=== PATIENT | female | born 1990 | race Caucasian/White ===

== ENCOUNTER → 2017-01-06 21:09 | Observation (INO) ==
[2017-01-06 19:09] LABS: Bilirubin,Urine Negative (Negative); Blood,Urine Negative (Negative); Color,Urine Yellow (Yellow); Glucose,Urine (UA) Normal (Normal); Ketones,Urine Negative (Negative); Leukocyte Esterase,Urine Small (Negative); Nitrite,Urine Negative (Negative); PH,Urine 6.5 pH Units (5.0-8.0); Protein,Urine Negative (Neg-Trace); Specific Gravity,Urine 1.008 (1.010-1.025); Urobilinogen,Urine Normal (Normal)
[2017-01-06 19:10] LABS: Bacteria,Urine Few per hpf (None-Few); Hyaline Casts,Urine None Seen per lpf (None-Few); RBC,Urine 0-3 per hpf (0-3); Squamous Epithelial Cell,Urine Many per lpf (None-Few)
[2017-01-06 19:11] LABS: Clarity,Urine Clear (Clear)
--- NOTE | 2017-01-06 20:43 | OB/GYN Progress Note ---
Date of Encounter: 01/06/17 Time of Encounter: 20:39 - Assessment and Plan (1) Decreased movement Current Visit: Yes Status: Acute 26 y/o @ 30+3 weeks who presented to L&D for decreased movement, NST reactive, cervix FT, ok for discharge to follow up outpatient. Qualifiers: Qualified Code(s): O36.8139 - Decreased movements, third trimester, other fetus Objective - Vital Signs Vital Signs: Intake and Output 01/06/17 01/06/17 01/06/17 07:59 15:59 23:59 Other: Weight 107.5 kg Patient Weight 01/06/17 23:59 Weight 107.5 kg - Labs Labs: Abnormal lab results Ur Specific [place] 1.008 (1.010-1.025) L 01/06/17 18:59 Ur Leukocyte Esterase Small (Negative) H 01/06/17 18:59 Urine Microscopic WBC 5-15 per hpf (0-3) H 01/06/17 18:59 Ur Squamous Epith Cells Many per lpf (None-Few) H 01/06/17 18:59 Ur Culture Indicated? YES (NO) A 01/06/17 18:59
== END | disposition home or self-care (01) ==
LOC: 1NENULAB
PROVIDERS: ADMIT Student in an Organized Health Care Education/Training Program; ATTEND Student in an Organized Health Care Education/Training Program

== ENCOUNTER 2017-03-07 17:00 | Inpatient (IN) ==
[2017-03-07] MEDS ORDERED: Metoclopramide 10 MG/2 ML VIAL IVP PRN (17:55)
[2017-03-07] MEDS ORDERED: Famotidine 20 MG/2 ML VIAL IVP PRN (17:55)
[2017-03-07] MEDS ORDERED: *HR* Nalbuphine 20 MG/ML AMPUL IVP PRN (18:17)
[2017-03-07 18:31] LABS: Basophils % 0.4 %; Eosinophils # 0.1 K/mcL (0.0-0.6); Eosinophils % 0.9 %; Hematocrit 37.2 % (35.3-44.9); Immature Granulocytes % 1.2 % (0-4); Lymphocytes # 1.5 K/mcL (0.6-4.6); Lymphocytes % 17.8 %; Mean Corpuscular HGB Conc 32.3 g/dL (31.6-35.5); Mean Corpuscular Hemoglobin 27.4 pg (28.0-33.3); Mean Corpuscular Volume 84.9 fL (83.0-100.0); Monocytes # 0.6 K/mcL (0.0-1.3); Monocytes % 7.6 %; Neutrophils # 6.1 K/mcL (1.6-8.9); Platelet Count 223 K/mcL (140-400); Red Blood Count 4.38 M/mcL (3.82-4.97); Red Cell Distribution Width 14.5 % (11.5-14.5); Segmented Neutrophils % 72.1 %
[2017-03-07 18:37] LABS: Prothrombin Time 10.3 Seconds (9.4-12.1)
[2017-03-07 18:40] LABS: Activated Partial Thrombo Time 27.6 Seconds (26.0-36.0)
[2017-03-07 18:40] LABS: Amphetamine Screen,Urine Negative ng/mL (Cutoff=1000); Barbiturate Screen,Urine Negative ng/mL (Cutoff=200); Benzodiazepines Screen,Urine Negative ng/mL (Cutoff=200); Cannabinoid Screen,Urine Negative ng/mL (Cutoff = 50); Cocaine Screen,Urine Negative ng/mL (Cutoff= 300); Opiate Screen,Urine Negative ng/mL (Cutoff=300); Phencyclidine Screen,Urine Negative ng/mL (Cutoff=25)
[2017-03-07 18:46] LABS: Alanine Aminotransferase 22 Units/L (0-55); Aspartate Amino Transferase 21 Units/L (5-34); BUN/Creatinine Ratio 16 (6-26); Blood Urea Nitrogen 13 mg/dL (7-20); Lactate Dehydrogenase 211 Units/L (159-327); eGFR For African Americans > 60 (> 60); eGFR For Non-African Americans > 60 (> 60)
--- NOTE | 2017-03-07 19:04 | Anesthesia Evaluation PreOp ---
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 No family history of anesthetic problems.) : Yes Alcohol Use: none Drug use: none Medications and Allergies Multivitamin [Multivitamins] 1 each PO DAILY 03/07/17 [History] Ranitidine HCl [Zantac] 150 mg PO DAILY 03/07/17 [History] 3 Allergy/AdvReac Type Severity Reaction Status Date / Time No Known Allergies Allergy Verified 01/06/17 18:51 - Meds/Allergy Pre-op Review Medications Reviewed: Yes Allergies Reviewed: Yes Beta Blockers on Current Med List: No Anesthesia Results - Labs 03/07/17 18:21 03/07/17 18:21 Anesthesia Exam VSS and FHTs stable.
[2017-03-07] MEDS ORDERED: miSOPROStol 25 MCG TABLET PO PRN (19:50)
--- NOTE | 2017-03-07 20:06 | OB/GYN History & Physical ---
Date of Encounter: 03/07/17 Time of Encounter: 20:04 Assessment and Plan (1) 39 weeks gestation of Current visit: Yes Status: Acute (2) Gestational diabetes Current visit: Yes Status: Acute Different induction of labor with Cytotec Nubain and epidural as desired Will check PT/INR and PTT due to history of ITP Anticipate Dr. Buchanan in agreement with plan Qualifiers: Gestational diabetes mellitus control: diet-controlled Trimester: third trimester Qualified Code(s): O24.410 - Gestational diabetes mellitus in , diet controlled (3) Large for gestational age fetus Current visit: Yes Status: Acute History of Present Illness Chief complaint: Induction of labor HPI: Ms. Todd is a 27 year old female 39+0 weeks' gestation presents for induction of labor for gestational diabetes, and large for gestational last ultrasound shows 87th percentile. Patient reports good movement, denies vaginal bleeding, contractions, leaking of fluid Labs: O+, rubella and varicella immune, GBS negative, all other serologies negative Past Med Surg Social Fam HX - Past Medical History Medical history: other Psychiatric history: no psych history - Past Surgical History Surgical History: other - Social History Smoking Status: Never smoker Smokeless Tobacco Status: No Alcohol use: none Drug use: none - Family History Mother Adopted: No Living Status: Still Living Hx Family Cardiac Disorders: No Hx Family Respiratory Disorders: No Hx Family Cancer: No Hx Family GI Disorders: No Hx Family Endocrine Disorder: No Hx Family Neuromuscular Disorders: No Hx Family Neurologic Disorders: No Hx Family HEENT Disorders: No Hx Family Autoimmune Disorders: No Obstetrical History - Pregnancies : 2 Para: 0 Term: 0 : 0 Ab's: 1 Livin Medications and Allergies Multivitamin [Multivitamins] 1 each PO DAILY 03/07/17 [History] Ranitidine HCl [Zantac] 150 mg PO DAILY 03/07/17 [History] 3 Allergy/AdvReac Type Severity Reaction Status Date / Time No Known Allergies Allergy Verified 01/06/17 18:51 Exam - Constitutional Constitutional: well developed, well nourished, no acute distress, obese - Lungs Respiratory exam: CTAB - Cardiovascular Cardiovascular exam: RRR - Abdomen Abdomen: Present: bowel sounds normal, gravid, non tender - Extremities Extremities exam: normal capillary refill, normal inspection - Cervix Dilation: 1 (fingertip) - Uterus Uterus exam: Present: normal size, normal contour Results Result Diagrams: 03/07/17 18:21 03/07/17 18:21 Abnormal lab results MCH 27.4 pg (28.0-33.3) L 03/07/17 18:21 All other labs normal. - VTE Reasons for not Prescribing Prophylaxis: Treatment not Indicated - Low risk for VTE
[2017-03-07 20:24] LABS: Glucose 84 mg/dL (70-99)
[2017-03-08] MEDS ORDERED: miSOPROStol 25 MCG TABLET PO SCH
--- NOTE | 2017-03-08 00:31 | OB Labor Progress Note ---
Date of Encounter: 03/08/17 Time of Encounter: 00:28 Labor Progress Note - Subjective Subjective: Pt resting in bed and states she feels slight contractions, but they are not painful - Cervix Cervix: fingertip/50/-2 - Heart Tones Heart Tones: 125/moderate/+accels/-decels - Plan Plan: Monitor contraction pattern. If contractions decrease may give second dose of cytotec 25mcg po. Nubain and epidural as desired, Anticipate
[2017-03-08] MEDS: Ringers Solution, Lactated 1,000 ML IVC SCH ×4 (03:44→20:30)
[2017-03-08] MEDS: Acetaminophen 325 MG TABLET PO PRN (09:11)
--- NOTE | 2017-03-08 09:14 | OB Labor Progress Note ---
Date of Encounter: 03/08/17 Time of Encounter: 09:12 Labor Progress Note - Subjective Subjective: Pt resting comfortably without complaints at this time. - Cervix Cervix: 1/50/-2 - Heart Tones Heart Tones: Category I - Emerado Emerado: 2-5 minutes - Interventions Interventions: Velasquez balloon placed in cervix using sterile technique. Balloon inflated with 30ml sterile water. Pt tolerated well. - Plan Plan: Allow pt to ambulate and sit on birthing ball. Apply pressure to velasquez every hour.
[2017-03-08] MEDS: Ondansetron 4 MG/2 ML VIAL IVP PRN (09:19)
[2017-03-08] MEDS: Oxytocin 20 units/ LR 1000 mL 20 UNIT/1,000 ML BAG IVC SCH (11:54)
--- NOTE | 2017-03-08 15:03 | OB Labor Progress Note ---
Date of Encounter: 03/08/17 Time of Encounter: 15:01 Labor Progress Note - Subjective Subjective: Patient reports contractions which are getting more uncomfortable. - Cervix Cervix: 4/50/-3 vertex - Heart Tones Heart Tones: 135 with acceleration with scalp stim. Category 1 tracing. - Hatley Hatley: q 2 minutes - Interventions Interventions: AROM with clear fluid. IUPC placed without difficulty. - Plan Plan: Continue pitocin induction
[2017-03-08] MEDS ORDERED: Bupivacaine-MPF 0.25% 10 ML VIAL EP ONE (16:38)
[2017-03-08] MEDS ORDERED: *HR* FentaNYL (PF) 100 MCG/2 ML VIAL EP ONE (16:38)
[2017-03-08] MEDS ORDERED: Epidural Premix (fent/bupiv) 110 ML EP ONE (16:39)
[2017-03-08] MEDS ORDERED: Epidural Premix (fent/bupiv) 110 ML EP SCH (16:45)
--- NOTE | 2017-03-08 17:29 | Anesthesia Evaluation PreOp ---
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 Other Medical History: Denies Any Significant HX Anesthesia History: No Prior Anesthetic Complications : Yes Test: Positive Alcohol Use: none Drug use: none Medications and Allergies Multivitamin [Multivitamins] 1 each PO DAILY 03/07/17 [History] Ranitidine HCl [Zantac] 150 mg PO DAILY 03/07/17 [History] 3 Allergy/AdvReac Type Severity Reaction Status Date / Time No Known Allergies Allergy Verified 01/06/17 18:51 - Meds/Allergy Pre-op Review Medications Reviewed: Yes Allergies Reviewed: Yes Beta Blockers on Current Med List: No Anesthesia Results - Labs 03/07/17 18:21 03/07/17 18:21 Anesthesia Exam Height: 63 Weight: 109 NPO (# of Hours): MN Pain Scale: 7 - HEENT Pupil (Motor): Pupils equal Mallampati: II Teeth: Normal Oral Opening: Greater than 3 - BOOK JOGGER LOC: Oriented BOOK JOGGER Motor: Normal RUE, Normal LUE, Normal RLE, Normal LLE, Normal Face BOOK JOGGER Sensory: Normal: RUE, LUE, RLE, LLE, Face
--- NOTE | 2017-03-08 17:31 | Anesthesia Procedures ---
Date of Encounter: 03/08/17 Time of Encounter: 16:45 Procedures: Anesthesia - Epidural/Spinal Patient examined: Yes OB Eval: Gestational age: 39 OB Eval: : 2 OB Eval: Hx Para: 0 OB Eval: Contractions: Non-stressed pattern Consent Obtained: Yes Supplemental Oxygen: None/Room Air Site Prep: Aseptic Technique, Sterile prep and drape, Povidone-Iodine 1% Patient position: upright Local Anesthetic: Lidocaine 1% Amount of Local Anesthetic used: 3 Touhy Needle Gauge: 18 Touhy Needle Depth (cm): 6 Catheter Depth at Skin (cm): 10 Test Dose (1.5% Lido + Epi): Volume given (mls): 3 Test Dose Result: Negative Infusion Med: 0.125% Bupivacaine w/ 2 mcg/ml Fentanyl Infusion Rate (mls/hr): 14 Interspace Used: L4-L5 Loss of Resistance (NATALIIA): Yes Blood: No CSF: No Paresthesia: No
[2017-03-09] MEDS ORDERED: Epidural Premix (fent/bupiv) 110 ML EP ONE ×3 (00:07→15:27)
[2017-03-09] MEDS: Ondansetron 4 MG/2 ML VIAL IVP PRN (03:00)
[2017-03-09] MEDS ORDERED: *HR* FentaNYL (PF) 100 MCG/2 ML VIAL ONE (06:07)
[2017-03-09] MEDS ORDERED: Lidocaine -MPF 2% 5 ML VIAL ONE (06:08)
--- NOTE | 2017-03-09 06:17 | Anesthesia Progress Note ---
Date of Encounter: 03/09/17 Time of Encounter: 06:16 Anesthesia Note - Note Note: Called to patient bedside to evaluate breakthrough labor pain. Patient rates pain 5/10 and describes it as bilateral lower pelvic pain. 5mL of 2% lido + 100mcg fentanyl administered via epidural catheter. Patient reports decrease in pain score. VSS. 03/09/17 06:16
[2017-03-09] MEDS: Oxytocin 20 units/ LR 1000 mL 20 UNIT/1,000 ML BAG IVC SCH (08:25)
[2017-03-09] MEDS: Ringers Solution, Lactated 1,000 ML IVC SCH (08:25)
[2017-03-09] MEDS ORDERED: *HR* Ropivacaine/PF 0.2% 10 ML AMPUL ONE (10:05)
[2017-03-09] MEDS: Acetaminophen 325 MG TABLET PO PRN (17:17)
--- NOTE | 2017-03-09 17:17 | OB/GYN Procedure Note ---
Delivery - Delivery Date: 03/09/17 Provider: Liz Butcher Intrapartum events: prolonged 2nd stage>2.5hr Delivery induction: AROM, oxytocin, velasquez, misoprostol, cervidil Delivery monitor: external FHT, external uterine, internal FHT, internal uterine Anesthesia: epidural Estimated Blood Loss: 400 - Infant (s) A Infant Delivery Date: 03/09/17 Infant Delivery Time: 16:41 Presentation: vertex Position: OA Route of delivery: Gender: Male Viability: Viable Shoulder Dystocia: not encountered Specimens collected: cord blood, venous cord gases, arterial cord gases Placenta: spontaneous Cord: 3 umbilical vessels, delivered through nuchal - Repair Episiotomy: none Laceration Description: None - Complications Delivery complications: none Delivery comments: Called to room with patient complete and +2 station. Under maternal effort she delivered a viable male . Weight and Apgars are still pending at the time of dictation. Following delivery of the head the infant was bulb suctioned. Nuchal cord was noted which she delivered through. No shoulder dystocia was encountered. Following delivery the infant was placed on mom's abdomen. Cord was clamped and cut. was taken to warmer by nursing staff. A segment of cord was collected for gases. Cord blood was collected. Placenta delivered spontaneously, complete, and intact with a three-vessel cord. Superficial vaginal laceration noted that was hemostatic without repair. There were no perineal or labial lacerations on exam. was taken to nursery in stable condition. Mother is recovering in LDR in stable condition. Sponge count is correct at the end of the procedure. - Disposition Mom disposition: stable in LDR [place] disposition: stable in LDR
[2017-03-09] MEDS ORDERED: Acetaminophen 325 MG TABLET PO PRN (20:49)
[2017-03-09] MEDS ORDERED: Oxytocin 20 units/ LR 1000 mL 20 UNIT/1,000 ML BAG IVC ONE (20:49)
[2017-03-09] MEDS ORDERED: Oxytocin 20 units/ LR 1000 mL 20 UNIT/1,000 ML BAG IVC SCH (20:49)
[2017-03-10] MEDS: Ibuprofen 600 MG TABLET PO PRN ×3 (01:10→17:17)
[2017-03-10] MEDS: Prenatal Vit/FA 1 EACH TABLET PO SCH (08:16)
--- NOTE | 2017-03-10 08:27 | OB/GYN Progress Note ---
Date of Encounter: 03/10/17 Time of Encounter: 08:15 - Assessment and Plan (1) Status post normal vaginal delivery Current Visit: Yes Status: Acute Discharged home in a.m. if stable and afebrile Subjective - Subjective Interval history: Patient is doing well at this time baby is still in the nursery possible discharge home tomorrow night. States bleeding is slowing down still but heavy minimal cramping. Overall she is doing well is pumping and trying to breast- feed. Patient reports: appetite normal, voiding normally, pain well controlled, ambulating normally : in NICU Objective - Latest Vital Signs Latest vital signs: Vital Signs Temp Pulse Resp BP Pulse Ox 03/10/17 06:00 97.2 F L 98 18 111/72 98 03/10/17 04:01 98.6 F 98 16 108/71 95 03/10/17 01:34 98.5 F 120 16 105/68 97 03/09/17 23:44 99.1 F 107 16 102/56 99 03/09/17 21:30 99.1 F 126 16 119/74 98 03/09/17 20:40 98.5 F 112 14 133/82 99 03/09/17 19:35 99.1 F 110 16 116/75 97 Intake and Output 03/09/17 03/10/17 03/10/17 23:59 07:59 15:59 Intake Total 120 / 120 Output Total 700 / 700 200 / 200 Balance -580 / -580 -200 / -200 Intake: Oral 120 / 120 Output: Urine 700 / 700 200 / 200 Other: Weight 110.9 kg - Exam Lungs: bilateral: normal Chest: Normal S1, Normal S2 Extremities: Present: normal Abdomen: Present: soft Uterus: Present: normal, firm Uterus Position: At Umbilicus
[2017-03-10] MEDS ORDERED: Neosporin OINT 15 GM TUBE TP SCH (21:00)
[2017-03-11] MEDS: Ibuprofen 600 MG TABLET PO PRN ×2 (02:41→08:05)
[2017-03-11] MEDS: Prenatal Vit/FA 1 EACH TABLET PO SCH (08:05)
[2017-03-11 08:23] VITALS: BP 130/81
--- NOTE | 2017-03-11 10:46 | Discharge Summary ---
Date of Encounter: 03/11/17 Time of Encounter: 10:46 - Discharge Diagnosis (1) Status post normal vaginal delivery Priority: Primary Status: Acute Comments: Doing well, will D/c home. - Discharge Medications Prescriptions: Ibuprofen [Motrin] 600 mg PO Q6HR PRN #40 tab PRN Reason: Cramping Home Medications: Multivitamin [Multivitamins] 1 each PO DAILY 03/07/17 [History] Ranitidine HCl [Zantac] 150 mg PO DAILY 03/07/17 [History] Ibuprofen [Motrin] 600 mg PO Q6HR PRN #40 tab 03/11/17 [Rx] Allergies/Adverse Reactions: 3 Allergy/AdvReac Type Severity Reaction Status Date / Time No Known Allergies Allergy Verified 01/06/17 18:51 Data Procedures and tests throughout hospitalization: Laboratory Tests 03/07/17 03/07/17 03/07/17 17:30 18:21 18:21 WBC 8.5 RBC 4.38 Hgb 12.0 Hct 37.2 MCV 84.9 MCH 27.4 L MCHC 32.3 RDW 14.5 Plt Count 223 MPV 12.0 Immature Gran % 1.2 Seg Neutrophils % 72.1 Lymphocytes % 17.8 Monocytes % 7.6 Eosinophils % 0.9 Basophils % 0.4 Neutrophils # 6.1 Lymphocytes # 1.5 Monocytes # 0.6 Eosinophils # 0.1 Basophils # 0.0 PT 10.3 INR 1.0 APTT 27.6 BUN Creatinine Est GFR ( Amer) Est GFR (Non-Af Amer) BUN/Creatinine Ratio Glucose Uric Acid AST ALT Lactate Dehydrogenase Urine Opiates Screen Negative Ur Barbiturates Screen Negative Ur Phencyclidine Scrn Negative Ur Amphetamines Screen Negative U Benzodiazepines Scrn Negative Urine Cocaine Screen Negative U Marijuana (THC) Screen Negative 03/07/17 18:21 WBC RBC Hgb Hct MCV MCH MCHC RDW Plt Count MPV Immature Gran % Seg Neutrophils % Lymphocytes % Monocytes % Eosinophils % Basophils % Neutrophils # Lymphocytes # Monocytes # Eosinophils # Basophils # PT INR APTT BUN 13 Creatinine 0.79 Est GFR ( Amer) > 60 Est GFR (Non-Af Amer) > 60 BUN/Creatinine Ratio 16 Glucose 84 Uric Acid 6.0 AST 21 ALT 22 Lactate Dehydrogenase 211 Urine Opiates Screen Ur Barbiturates Screen Ur Phencyclidine Scrn Ur Amphetamines Screen U Benzodiazepines Scrn Urine Cocaine Screen U Marijuana (THC) Screen - Impressions Doing well s/p . Cont. PP care. 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 Time Attestation: Total time spent providing and/or coordinating discharge services: Exam - Constitutional Vitals: Temp Pulse Resp BP Pulse Ox 98.0 F 96 16 130/81 98 03/11/17 07:30 03/11/17 07:30 03/11/17 07:30 03/11/17 07:30 03/10/17 20:01 General appearance IM: A&O X 3 - Respiratory Respiratory exam: Present: CTAB - Cardiovascular Cardiovascular exam IM: Present: RRR - GI/Abdominal GI/Abdominal exam IM: normal bowel sounds - Uterus Position: 2 Fingers Below Umbilicus - Extremities Exam Extremities exam IM: Present: full ROM - Neurological Exam Neurological exam: oriented X3 - VTE Reasons for not Prescribing Prophylaxis: Treatment not Indicated - Low risk for VTE
--- NOTE | 2017-03-11 15:58 | Discharge Summary ---
Outpatient Proc Discharge Plan - Plan Prescriptions: Ibuprofen [Motrin] 600 mg PO Q6HR PRN #40 tab PRN Reason: Cramping Breast Pump [BREAST PUMP] 1 each .ROUTE AD #1 each Home Medications: Multivitamin [Multivitamins] 1 each PO DAILY 03/07/17 [History] Ranitidine HCl [Zantac] 150 mg PO DAILY 03/07/17 [History] Breast Pump [BREAST PUMP] 1 each .ROUTE AD #1 each 03/11/17 [Rx] Ibuprofen [Motrin] 600 mg PO Q6HR PRN #40 tab 03/11/17 [Rx] Follow up with: Liz Butcher DO [Partnered Physician] -
[2017-03-11] MEDS ORDERED: Methylergonovine 0.2 MG/ML AMPUL IM ONE (15:59)
== END 2017-03-11 16:00 | disposition home or self-care (01) | DRG 775 ==
LOC: 1NENULAB 17:06 → 1NENUOBS 03-09 21:06
PROVIDERS: ADMIT Obstetrics & Gynecology; ATTEND Obstetrics & Gynecology

== ENCOUNTER → 2018-09-24 17:00 | Observation (INO) ==
[2018-09-24 15:10] LABS: Bilirubin,Urine Negative (Negative); Blood,Urine Negative (Negative); Clarity,Urine Clear (Clear); Color,Urine Yellow (Yellow); Glucose,Urine (UA) Normal (Normal); Ketones,Urine Negative (Negative); Leukocyte Esterase,Urine Trace (Negative); Nitrite,Urine Negative (Negative); PH,Urine 6.5 pH Units (5.0-8.0); Protein,Urine Trace mg/dL (Neg-Trace); Urobilinogen,Urine Normal (Normal)
[2018-09-24 15:11] LABS: Bacteria,Urine None Seen per hpf (None-Few); Hyaline Casts,Urine None Seen per lpf (None-Few); RBC,Urine 0-3 per hpf (0-3); Squamous Epithelial Cell,Urine Many per lpf (None-Few)
[2018-09-24 15:58] LABS: Amphetamine Screen,Urine Negative ng/mL (Cutoff=1000); Barbiturate Screen,Urine Positive ng/mL (Cutoff=200); Benzodiazepines Screen,Urine Negative ng/mL (Cutoff=200); Cannabinoid Screen,Urine Negative ng/mL (Cutoff = 50); Cocaine Screen,Urine Negative ng/mL (Cutoff= 300); Opiate Screen,Urine Negative ng/mL (Cutoff=300); Phencyclidine Screen,Urine Negative ng/mL (Cutoff=25)
[2018-09-24 16:37] LABS: Candida DNA Not Detected (Not Detect); Gardnerella DNA Not Detected (Not Detect); Trichomonas DNA Not Detected (Not Detect)
--- NOTE | 2018-09-24 16:56 | Discharge Summary ---
Date of Encounter: 09/24/18 Time of Encounter: 16:56 - Discharge Diagnosis (1) 32 weeks gestation of Priority: Primary Status: Acute Comments: Follow-up with Dr. Butcher as scheduled labor precautions discussed Discharge home (2) Vaginal bleeding Priority: Secondary Status: Acute Comments: Vaginosis panel negative UA negative No blood seen on speculum exam - Discharge Medications Allergies/Adverse Reactions: Allergy/AdvReac Type Severity Reaction Status Date / Time No Known Allergies Allergy Verified 01/06/17 18:51 Data Procedures and tests throughout hospitalization: Laboratory Tests 09/24/18 09/24/18 09/24/18 14:50 14:50 Unknown Urine Color Yellow Urine Clarity Clear Urine pH 6.5 Ur Specific [place] 1.020 Urine Protein Trace Urine Glucose (UA) Normal Urine Ketones Negative Urine Blood Negative Urine Nitrite Negative Urine Bilirubin Negative Urine Urobilinogen Normal Ur Leukocyte Esterase Trace H Urine Microscopic RBC 0-3 Urine Microscopic WBC 3-5 H Ur Squamous Epith Cells Many H Urine Bacteria None Seen Hyaline Casts None Seen Ur Culture Indicated? NO. A Urine Opiates Screen Negative Ur Barbiturates Screen Positive H Ur Phencyclidine Scrn Negative Ur Amphetamines Screen Negative U Benzodiazepines Scrn Negative Urine Cocaine Screen Negative U Marijuana (THC) Screen Negative Ur Drug Screen Interp See Below Richa species DNA Not Detected Gardnerella DNA Probe Not Detected Trichomonas DNA Probe Not Detected Labs on day of discharge: Labs from last 24 hours 09/24/18 09/24/18 09/24/18 Unknown 14:50 14:50 Urine Color Yellow Urine Clarity Clear Urine pH 6.5 Ur Specific [place] 1.020 Urine Protein Trace Urine Glucose (UA) Normal Urine Ketones Negative Urine Blood Negative Urine Nitrite Negative Urine Bilirubin Negative Urine Urobilinogen Normal Ur Leukocyte Esterase Trace H Urine Microscopic RBC 0-3 Urine Microscopic WBC 3-5 H Ur Squamous Epith Cells Many H Urine Bacteria None Seen Hyaline Casts None Seen Ur Culture Indicated? NO. A Urine Opiates Screen Negative Ur Barbiturates Screen Positive H Ur Phencyclidine Scrn Negative Ur Amphetamines Screen Negative U Benzodiazepines Scrn Negative Urine Cocaine Screen Negative U Marijuana (THC) Screen Negative Ur Drug Screen Interp See Below Richa species DNA Not Detected Gardnerella DNA Probe Not Detected Trichomonas DNA Probe Not Detected Date of admission: 09/24/18 14:23 Primary care physician: Jonn Rodríguez DO Discharging clinician: Charu Gaytan Anticipated date of discharge: 09/24/18 - Patient Status Disposition: Home, Self-Care Condition: Good Functional capacity at discharge: independent ambulation Overall status at discharge: patient is back to baseline - Discharge Instructions Follow Up With: Jon Rodríguez DO [Primary Care Provider] - Liz Butcher DO [Partnered Physician] - Additional Instructions: LABOR AND DELIVERY DISCHARGE INSTRUCTIONS Signs and Symptoms to be Reported to your Doctor Immediately: * Sudden gush, continuous or intermittent lead of fluid from vagina (note the time of gush and color of fluid) * Onset of bright red vaginal bleeding with or without pain (if you had a vaginal exam during this visit you may notice some dark red spotting. This is normal.) * Lower abdominal cramping or backache that is premenstrual-like feeling. * More than 6 contractions in one hour. * Burning during urination, having to urinate more frequently or pain in your mid-back. * A change in the baby's activity. This could be an increase or decrease in activity. * Severe headache which does not go away with tylenol. * Sudden swelling in the face, hands, arms and/or legs. * Upper abdominal pain - sometimes associated with heartburn or nausea and is not relieved by Maalox, Mylanta or Tums. * Dizziness or blurred vision or visual disturbances (seeing stars/lights). * Kick Counts One hour after a meal, lay down on one side in a quiet place. Count the number of times the baby moves during an hour. If less than 6 movements, notify your physician. Diet: *Force fluids - 8-10 tall glasses of fluid per day. May include popsicles and jello. 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 She endorses good fm and denies lof and ctx. She had a small amount of bright red bleeding when she went to the bathroom this morning. No other symptoms. Vaginosis panel and UA both negative. No blood seen on speculum exam. Patient discharged home with appropriate follow up. Time Attestation: Total time spent providing and/or coordinating discharge services: Time Spent: Less than 30 minutes Exam - Constitutional General appearance IM: A&O X 3 - Respiratory Respiratory exam: Present: CTAB - Cardiovascular Cardiovascular exam IM: Present: RRR, +S1, +S2 - GI/Abdominal GI/Abdominal exam IM: normal bowel sounds, no peritoneal signs - Rectal Rectal exam: deferred - Uterine Tone: Firm Uterus Position: At Umbilicus, Midline - Neurological Exam Neurological exam: alert, CN II-XII intact, normal gait, oriented X3, reflexes normal, no focal deficits, strengths equal and symetr throughout - VTE Reasons for not Prescribing Prophylaxis: Treatment not Indicated - Low risk for VTE
== END | disposition home or self-care (01) ==
LOC: 1NENULAB
PROVIDERS: ADMIT Advanced Practice Midwife; ATTEND Advanced Practice Midwife

== ENCOUNTER 2018-10-01 17:23 | Observation (INO) ==
[2018-10-01 18:40] LABS: Bilirubin,Urine Negative (Negative); Blood,Urine Negative (Negative); Clarity,Urine Cloudy (Clear); Color,Urine Yellow (Yellow); Glucose,Urine (UA) Normal (Normal); Ketones,Urine Negative (Negative); Leukocyte Esterase,Urine Small (Negative); Nitrite,Urine Negative (Negative); PH,Urine 6.5 pH Units (5.0-8.0); Protein,Urine Negative (Neg-Trace); Specific Gravity,Urine 1.012 (1.010-1.025); Urobilinogen,Urine Normal (Normal)
[2018-10-01 18:43] LABS: Bacteria,Urine Moderate per hpf (None-Few); Hyaline Casts,Urine None Seen per lpf (None-Few); RBC,Urine 0-3 per hpf (0-3); Squamous Epithelial Cell,Urine Many per lpf (None-Few)
[2018-10-01 19:05] LABS: Amphetamine Screen,Urine Negative ng/mL (Cutoff=1000); Barbiturate Screen,Urine Negative ng/mL (Cutoff=200); Benzodiazepines Screen,Urine Negative ng/mL (Cutoff=200); Cannabinoid Screen,Urine Negative ng/mL (Cutoff = 50); Cocaine Screen,Urine Negative ng/mL (Cutoff= 300); Opiate Screen,Urine Negative ng/mL (Cutoff=300); Phencyclidine Screen,Urine Negative ng/mL (Cutoff=25)
--- NOTE | 2018-10-01 19:09 | Discharge Summary ---
Date of Encounter: 10/01/18 Time of Encounter: 19:08 - Discharge Diagnosis (1) 31 weeks gestation of Priority: Primary Status: Acute Comments: Follow up with Dr. Butcher as scheduled PTL precautions discussed Discharge home (2) Vaginal bleeding Priority: Secondary Status: Acute Comments: Patient and does not have any vaginal bleeding throughout the hours she has been here. Vaginal exam fingertip/thick/high - Discharge Medications Prescriptions: No Action Natachew Tablet 1 tab PO DAILY Home Medications: Natachew Tablet 1 tab PO DAILY 10/01/18 [History] Allergies/Adverse Reactions: Allergy/AdvReac Type Severity Reaction Status Date / Time No Known Allergies Allergy Verified 01/06/17 18:51 Data Procedures and tests throughout hospitalization: Laboratory Tests 10/01/18 10/01/18 17:45 17:45 Urine Color Yellow Urine Clarity Cloudy A Urine pH 6.5 Ur Specific Ideal 1.012 Urine Protein Negative Urine Glucose (UA) Normal Urine Ketones Negative Urine Blood Negative Urine Nitrite Negative Urine Bilirubin Negative Urine Urobilinogen Normal Ur Leukocyte Esterase Small H Urine Microscopic RBC 0-3 Urine Microscopic WBC 5-15 H Ur Squamous Epith Cells Many H Urine Bacteria Moderate H Hyaline Casts None Seen Ur Culture Indicated? NO. A Urine Opiates Screen Negative Ur Barbiturates Screen Negative Ur Phencyclidine Scrn Negative Ur Amphetamines Screen Negative U Benzodiazepines Scrn Negative Urine Cocaine Screen Negative U Marijuana (THC) Screen Negative Ur Drug Screen Interp See Below Labs on day of discharge: Labs from last 24 hours 10/01/18 10/01/18 17:45 17:45 Urine Color Yellow Urine Clarity Cloudy A Urine pH 6.5 Ur Specific Ideal 1.012 Urine Protein Negative Urine Glucose (UA) Normal Urine Ketones Negative Urine Blood Negative Urine Nitrite Negative Urine Bilirubin Negative Urine Urobilinogen Normal Ur Leukocyte Esterase Small H Urine Microscopic RBC 0-3 Urine Microscopic WBC 5-15 H Ur Squamous Epith Cells Many H Urine Bacteria Moderate H Hyaline Casts None Seen Ur Culture Indicated? NO. A Urine Opiates Screen Negative Ur Barbiturates Screen Negative Ur Phencyclidine Scrn Negative Ur Amphetamines Screen Negative U Benzodiazepines Scrn Negative Urine Cocaine Screen Negative U Marijuana (THC) Screen Negative Ur Drug Screen Interp See Below Date of admission: 10/01/18 17:23 Discharging clinician: Charu Gaytan Anticipated date of discharge: 10/01/18 - Patient Status Disposition: Home, Self-Care Condition: Good Functional capacity at discharge: independent ambulation Overall status at discharge: patient is progressing back to baseline - Discharge Instructions Follow Up With: Liz Butcher DO [Partnered Physician] - - Diet and Activity Activity: increase activity as tolerated Diet: regular diet 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 She endorses good movement and denies leakage of fluid and contractions. She was monitored for a couple of hours and was found to have a few contractions and no vaginal bleeding. Speculum exam revealed no blood in the vault. fingertip/thick/high Time Attestation: Total time spent providing and/or coordinating discharge services: Time Spent: Less than 30 minutes Exam - Constitutional General appearance IM: A&O X 3 - Respiratory Respiratory exam: Present: CTAB - Cardiovascular Cardiovascular exam IM: Present: RRR, +S1, +S2 - GI/Abdominal GI/Abdominal exam IM: normal bowel sounds, no peritoneal signs - Rectal Rectal exam: deferred - Uterine Tone: Firm - Extremities Exam Extremities exam IM: Present: normal capillary refill, normal inspection, radial pulses palpable and symmetrical - Neurological Exam Neurological exam: alert, CN II-XII intact, normal gait, oriented X3, reflexes normal, no focal deficits, strengths equal and symetr throughout - VTE Reasons for not Prescribing Prophylaxis: Treatment not Indicated - Low risk for VTE
== END 2018-10-01 19:18 | disposition home or self-care (01) ==
LOC: 1NENULAB
PROVIDERS: ADMIT Advanced Practice Midwife; ATTEND Advanced Practice Midwife

== ENCOUNTER 2018-11-27 07:22 | Inpatient (IN) ==
[2018-11-27] MEDS ORDERED: *HR* Nalbuphine 10 MG/ML AMPUL IVP PRN (07:40)
[2018-11-27] MEDS ORDERED: Ondansetron 4 MG/2 ML VIAL IVP PRN (07:40)
[2018-11-27] MEDS ORDERED: Naloxone 0.4 MG/ML INJ IVP PRN (07:40)
[2018-11-27] MEDS ORDERED: Metoclopramide 10 MG/2 ML VIAL IVP PRN (07:40)
[2018-11-27] MEDS ORDERED: Famotidine 20 MG/2 ML VIAL IVP PRN (07:40)
[2018-11-27] MEDS ORDERED: miSOPROStol 25 MCG TABLET PO PRN (07:40)
[2018-11-27] MEDS ORDERED: Oxytocin 20 units/ LR 1000 mL 20 UNIT/1,000 ML BAG IVC SCH (07:45)
[2018-11-27] MEDS ORDERED: Ringers Solution, Lactated 1,000 ML IVC SCH (07:45)
[2018-11-27 08:53] LABS: Basophils % 0.4 %; Eosinophils # 0.1 K/mcL (0.0-0.6); Hematocrit 35.4 % (35.3-44.9); Hemoglobin 11.5 g/dL (11.5-15.4); Lymphocytes # 1.9 K/mcL (0.6-4.6); Lymphocytes % 21.7 %; Mean Corpuscular HGB Conc 32.5 g/dL (31.6-35.5); Mean Corpuscular Volume 83.1 fL (83.0-100.0); Mean Platelet Volume 11.6 fL (9.4-12.4); Monocytes # 0.7 K/mcL (0.0-1.3); Monocytes % 8.1 %; Neutrophils # 6.1 K/mcL (1.6-8.9); Platelet Count 238 K/mcL (140-400); Red Blood Count 4.26 M/mcL (3.82-4.97); Red Cell Distribution Width 13.6 % (11.5-14.5); Segmented Neutrophils % 67.8 %
[2018-11-27 09:00] LABS: Amphetamine Screen,Urine Negative ng/mL (Cutoff=1000); Barbiturate Screen,Urine Negative ng/mL (Cutoff=200); Benzodiazepines Screen,Urine Negative ng/mL (Cutoff=200); Cannabinoid Screen,Urine Negative ng/mL (Cutoff = 50); Cocaine Screen,Urine Negative ng/mL (Cutoff= 300); Opiate Screen,Urine Negative ng/mL (Cutoff=300); Phencyclidine Screen,Urine Negative ng/mL (Cutoff=25)
--- NOTE | 2018-11-27 09:51 | Anesthesia Evaluation PreOp ---
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 History of scoliosis, no surgical intervention, no problems with previous epidural.), Other (Obesity, BMI 43.5.) Anesthesia History: No Prior Anesthetic Complications, Past Anesthesia (T&A at age 6 yrs., wisdom teeth extracted. No problems with GA, no FHAP. Previous epidural 20 mos. ago with no issues.) Alcohol Use: none Drug use: none Medications and Allergies Natachew Tablet 1 tab PO DAILY 10/01/18 [History] Famotidine [Pepcid] 40 mg PO DAILY 11/27/18 [History] Allergy/AdvReac Type Severity Reaction Status Date / Time No Known Allergies Allergy Verified 10/11/18 19:35 - Meds/Allergy Pre-op Review Medications Reviewed: No Allergies Reviewed: No Beta Blockers on Current Med List: No Anesthesia Results - Labs 11/27/18 08:32 Anesthesia Exam 134/83, 117, 16. FHTs 130s. Height: 5'3" Weight: 111 kg BMI 43.5 NPO (# of Hours): 2 Pain Scale: 0 - HEENT Pupil (Motor): Pupils equal, EOMI Mallampati: III Teeth: Normal Oral Opening: Greater than 3 - INTERNET SALES REPRESENTATIVE LOC: Oriented INTERNET SALES REPRESENTATIVE Motor: Normal RUE, Normal LUE, Normal RLE, Normal LLE, Normal Face INTERNET SALES REPRESENTATIVE Sensory: Normal: RUE, LUE, RLE, LLE, Face - Cardiac Rhythm: Regular - Pulmonary Breath Sounds: bilateral Clear Respiratory Effort: Symmetrical Anesthesia Assess/Plan ASA Score: 3 (BMI 43.5) Level of consciousness: Cooperative, Oriented, Tranquil Anesthetic Plan: Epidural Monitoring Plan: Standard Monitors
[2018-11-27] MEDS ORDERED: Famotidine 20 MG/2 ML VIAL IVP ONE (11:23)
--- NOTE | 2018-11-27 12:35 | OB/GYN History & Physical ---
Date of Encounter: 11/27/18 Time of Encounter: 12:26 Assessment and Plan (1) Elective induction of labor planned Current visit: Yes Status: Acute Pitocin induction already underway. Continue to increase until adequate labor acheived. EFM in anticipation of vaginal delivery. (2) 39 weeks gestation of Current visit: Yes Status: Acute (3) Large for gestational age fetus Current visit: Yes Status: Acute (4) Gestational diabetes Current visit: Yes Status: Acute Qualifiers: Gestational diabetes mellitus control: diet-controlled Trimester: third trimester Qualified Code(s): O24.410 - Gestational diabetes mellitus in , diet controlled History of Present Illness Chief complaint: Patient here for induction of labor at 39 weeks. HPI: Ms. Todd is a 28 year old female G 3 P 1-0-1-1 at 39 0/7 weeks presents for induction of labor at term. Her has been complicated by GDMA1 (diagnosed by accuchecks only because she cannot tolerate a glucola), obesity, and LGA. She denies any contractions, vaginal bleeding, or leaking fluid. She reports good movement. Past Med Surg Social Fam HX - Past Medical History Source: patient Medical history: migraine, other Additional medical history: ITP at 1 years old, since resolved, irritable bowel syndrome. seasonal allergies Psychiatric history: no psych history - Past Surgical History Surgical History: other Additional surgical history: tonsils, wisdom teeth - Social History Smoking Status: Never smoker Smokeless Tobacco Status: No Alcohol use: none Drug use: none - Family History Mother Adopted: No Family Member Ethnicity: Non- Living Status: Still Living Hx Family Cardiac Disorders: No Hx Family Respiratory Disorders: No Hx Family Cancer: No Hx Family GI Disorders: No Hx Family Genitourinary Disorders: No Hx Family Endocrine Disorder: No Hx Family Musculoskeletal Disorders: No Hx Family Neuromuscular Disorders: No Hx Family Neurologic Disorders: No Hx Family HEENT Disorders: No Hx Family Autoimmune Disorders: No Hx Family Reproductive Disorders: No Hx Family Psychosocial Disorders: No Hx Family Medical Disorders: No Obstetrical History - Pregnancies : 3 Para: 1 Term: 1 : 0 Ab's: 1 Livin Medications and Allergies Natachew Tablet 1 tab PO DAILY 10/01/18 [History] Famotidine [Pepcid] 40 mg PO DAILY 11/27/18 [History] Allergy/AdvReac Type Severity Reaction Status Date / Time No Known Allergies Allergy Verified 10/11/18 19:35 Review of System OB All systems PM: reviewed and no additional remarkable complaints except as stated - Constitutional Constitutional ROS IM: no chills, no fatigue, no fever(s) - Cardiovascular Cardiovascular: no chest pain, no chest pain at rest, no dyspnea - Respiratory Respiratory: no dyspnea - Gastrointestinal Gastrointestinal: no heartburn, no nausea, no vomiting - Menstruation Menstruation: amenorrhea Exam - Constitutional Constitutional: well developed, well nourished, no acute distress, obese - HEENT HEENT: EOMI - Lungs Respiratory exam: CTAB - Cardiovascular Cardiovascular exam: RRR - Abdomen Abdomen: Present: bowel sounds normal, gravid, non tender - Vulva Vulva: bilateral: normal - Cervix Dilation: 4 Effacement: 50 Station: -3 - Comments Comments: AROM with moderate amount of clear fluid noted FHTs category 1 with baseline 140's, toco q 2-4 minutes Results Result Diagrams: 11/27/18 08:32 Abnormal lab results MCH 27.0 pg (28.0-33.3) L 11/27/18 08:32 All other labs normal. US - abdomen: report reviewed (EFW 7 lb 5 oz on 11/04/2018 with MARICARMEN 16.3 cm) - VTE Reasons for not Prescribing Prophylaxis: Treatment not Indicated - Low risk for VTE
[2018-11-27] MEDS ORDERED: Epidural Premix (fent/bupiv) 110 ML EP ONE (14:49)
[2018-11-27] MEDS ORDERED: *HR* Ropivacaine/PF 0.2% 20 ML VIAL ONE (14:49)
[2018-11-27] MEDS ORDERED: *HR* FentaNYL (PF) 100 MCG/2 ML VIAL ONE (14:49)
--- NOTE | 2018-11-27 15:22 | Anesthesia Procedures ---
Date of Encounter: 11/27/18 Time of Encounter: 14:40 Procedures: Anesthesia - Epidural/Spinal Patient ID/Chart reviewed: Yes Patient examined: Yes OB Eval: Contractions: Non-stressed pattern Consent Obtained: Yes Supplemental Oxygen: None/Room Air Site Prep: Aseptic Technique Patient position: upright Local Anesthetic: Lidocaine 1% Amount of Local Anesthetic used: 3 Touhy Needle Gauge: 18 Touhy Needle Depth (cm): 5 Catheter Depth at Skin (cm): 12 Test Dose (1.5% Lido + Epi): Volume given (mls): 3 Test Dose Result: Negative Loading Dose: Fentanyl (mcg): 100 Loading Dose: Other: ropivicaine 7ml 0.2% Loading Dose Administered: Thru Touhy Needle Infusion Rate (mls/hr): [address]: Tegaderm Interspace Used: L3-L4 Loss of Resistance (NATALIIA): Yes Blood: No CSF: No Paresthesia: No Procedure: One attempt aseptically L3-4, good NATALIIA, VS per RN
--- NOTE | 2018-11-27 15:27 | OB Labor Progress Note ---
Date of Encounter: 11/27/18 Time of Encounter: 15:24 Labor Progress Note - Subjective Subjective: Patient is without complaints. She is s/p epirdural - Cervix Cervix: 6/50/-3 cephalic - Heart Tones Heart Tones: category 1 with baseline 140 - [place]: q2-4 minutes - Interventions Interventions: IUPC placed without difficulty
[2018-11-27] MEDS ORDERED: Epidural Premix (fent/bupiv) 110 ML EP SCH (15:30)
--- NOTE | 2018-11-28 00:24 | OB/GYN Procedure Note ---
Delivery - Delivery Date: 11/28/18 Provider: Liz Butcher Delivery induction: AROM, oxytocin Delivery monitor: external FHT, external uterine, internal uterine Anesthesia: epidural Quantitated Blood Loss: 100 - (s) Infant A Delivery Date: 11/28/18 Infant Delivery Time: 00:09 Presentation: vertex Position: KEY Route of delivery: Gender: Female Viability: Viable Pounds: 8 Ounces: 5 Weight Gram: 3.765 kg at 1 minute: 9 at 5 mins: 10 Shoulder Dystocia: not encountered Specimens collected: cord blood Placenta: spontaneous Cord: 3 umbilical vessels - Repair Episiotomy: none Laceration Description: Vaginal (superficial, hemostatic without repair) - Complications Delivery complications: none Delivery comments: Called to room with patient complete and +2 station. Under maternal effort she delivered a viable female weighing 8 lbs. 5 oz. and Apgars 9 and 10 at 1 and 5 minutes respectively delivered over an intact perineum. Following delivery of the head there was no nuchal cord or shoulder dystocia encountered. Infant was placed on mom's abdomen. Cord was allowed to cease pulsations and then was double clamped and cut with assistance from the father. There is a superficial vaginal laceration that was hemostatic without repair. There were no labial, vaginal, or cervical lacerations on exam. Placenta delivered spontaneously, complete, and intact with a three-vessel cord. Mother and infant are recovering in the LDR in stable condition. - Disposition Mom disposition: stable in LDR [place] disposition: stable in LDR
[2018-11-28] MEDS ORDERED: Lanolin 7 G OINT...G. TP PRN (02:27)
[2018-11-28] MEDS ORDERED: Acetaminophen 325 MG TABLET PO PRN (02:27)
[2018-11-28] MEDS ORDERED: Benzocaine/Menthol 56 GM AEROSOL SPRAY TP PRN (02:27)
[2018-11-28] MEDS ORDERED: Oxytocin 20 units/ LR 1000 mL 20 UNIT/1,000 ML BAG IVC SCH (02:27)
[2018-11-28] MEDS: Ibuprofen 600 MG TABLET PO PRN ×2 (09:14→19:58)
[2018-11-28] MEDS: Prenatal Vit/FA 1 EACH TABLET PO SCH (09:15)
[2018-11-29 08:05] VITALS: BP 133/70
[2018-11-29] MEDS: Prenatal Vit/FA 1 EACH TABLET PO SCH (09:15)
--- NOTE | 2018-11-29 11:19 | Discharge Summary ---
Date of Encounter: 11/29/18 Time of Encounter: 11:16 - Discharge Diagnosis (1) Vaginal delivery Priority: Primary Status: Acute Comments: Feeling well Tolerating regular diet Pain well-controlled with by mouth pain meds Ambulating independently Voiding independently Lochia light Passing flatus, no BM yet Vital signs stable Discharge home today (2) Breast feeding status of mother Priority: Secondary Status: Acute Comments: Community resources provided - Discharge Medications Prescriptions: New Breast Pump [BREAST PUMP] 1 each .ROUTE AD #1 each Docusate [Colace] 100 mg PO BID #30 capsule Benzocaine/Menthol Milo [Dermoplast Milo] 1 appl TP QID PRN aerosol PRN Reason: See Comments Lanolin [Lansinoh] 1 appl TP QID PRN oint...g. PRN Reason: Ibuprofen [Motrin] 600 mg PO Q6HR PRN #30 tablet PRN Reason: Cramping Acetaminophen [Tylenol] 650 mg PO Q6HR PRN tablet PRN Reason: Mild Pain Continued Natachew Tablet 1 tab PO DAILY Famotidine [Pepcid] 40 mg PO DAILY Home Medications: Natachew Tablet 1 tab PO DAILY 10/01/18 [History] Famotidine [Pepcid] 40 mg PO DAILY 11/27/18 [History] Acetaminophen [Tylenol] 650 mg PO Q6HR PRN tablet 11/29/18 [Rx] Benzocaine/Menthol Milo [Dermoplast Milo] 1 appl TP QID PRN aerosol 11/29/18 [Rx] Breast Pump [BREAST PUMP] 1 each .ROUTE AD #1 each 11/29/18 [Rx] Docusate [Colace] 100 mg PO BID #30 capsule 11/29/18 [Rx] Ibuprofen [Motrin] 600 mg PO Q6HR PRN #30 tablet 11/29/18 [Rx] Lanolin [Lansinoh] 1 appl TP QID PRN oint...g. 11/29/18 [Rx] Allergies/Adverse Reactions: Allergy/AdvReac Type Severity Reaction Status Date / Time No Known Allergies Allergy Verified 10/11/18 19:35 Data Procedures and tests throughout hospitalization: Laboratory Tests 11/27/18 11/27/18 08:32 08:32 WBC 8.9 RBC 4.26 Hgb 11.5 Hct 35.4 MCV 83.1 MCH 27.0 L MCHC 32.5 RDW 13.6 Plt Count 238 MPV 11.6 Immature Gran % 1.0 Seg Neutrophils % 67.8 Lymphocytes % 21.7 Monocytes % 8.1 Eosinophils % 1.0 Basophils % 0.4 Neutrophils # 6.1 Lymphocytes # 1.9 Monocytes # 0.7 Eosinophils # 0.1 Basophils # 0.0 Urine Opiates Screen Negative Ur Barbiturates Screen Negative Ur Phencyclidine Scrn Negative Ur Amphetamines Screen Negative U Benzodiazepines Scrn Negative Urine Cocaine Screen Negative U Marijuana (THC) Screen Negative Ur Drug Screen Interp See Below Date of admission: 11/27/18 07:22 Primary care physician: Jonn Rodríguez DO Consults: 11/28/18 02:27 Consult to Forensic Chemist [CONS] Routine Comment: Vaginal delivery, consult needed Discharging clinician: Charu Gaytan Anticipated date of discharge: 11/29/18 - Patient Status Disposition: Home, Self-Care Condition: Good Functional capacity at discharge: independent ambulation Overall status at discharge: patient is progressing back to baseline (6) - Discharge Instructions Follow Up With: Jon Rodríguez DO [Primary Care Provider] - Liz Butcher DO [Partnered Physician] - - Diet and Activity Activity: increase activity as tolerated Diet: regular diet Hospital Course Reason for admission: induction of labor, IUP at term Delivery: Episiotomy: none Laceration: none Other procedures: none complications: none Discharge diagnosis: IUP at term delivered [place] baby: female Time Attestation: Total time spent providing and/or coordinating discharge services: Time Spent: Less than 30 minutes Exam - Constitutional Vitals: Temp Pulse Resp BP Pulse Ox 98 F 63 14 133/70 99 11/29/18 08:03 11/29/18 08:03 11/29/18 08:03 11/29/18 08:03 11/29/18 08:03 General appearance IM: A&O X 3, morbidly obese, pleasant, no acute distress, answers questions appropriately - Respiratory Respiratory exam: Present: CTAB - Cardiovascular Cardiovascular exam IM: Present: RRR, +S1, +S2 - GI/Abdominal GI/Abdominal exam IM: normal bowel sounds, no peritoneal signs - Rectal Rectal exam: deferred - Uterine Tone: Firm Uterus Position: At Umbilicus, Midline - Extremities Exam Extremities exam IM: Present: full ROM, normal capillary refill, normal inspection, radial pulses palpable and symmetrical - Neurological Exam Neurological exam: alert, CN II-XII intact, normal gait, oriented X3, reflexes normal, no focal deficits, strengths equal and symetr throughout - Psychiatric Additional comments: Signs and symptoms of depression discussed with patient and partner and both verbalized understanding of when to seek help.
== END 2018-11-29 14:20 | disposition home or self-care (01) | DRG 806 ==
LOC: 1NENULAB 07:22 → 1NENUOBS 11-28 03:16
PROVIDERS: ADMIT Obstetrics & Gynecology; ATTEND Obstetrics & Gynecology